=== PATIENT | male | born 1950 | race Caucasian/White ===

== ENCOUNTER 2018-06-20 16:11 | Emergency (ER) | payer OTHER ==
[~2018-06-20] VITALS: Ht 165.1 cm; Wt 70.3 kg
[2018-06-20] MEDS ORDERED: NACL 0.9% 1,000 ML IV ONE (16:16)
[2018-06-20 16:18] VITALS: BP_SYST 158
--- NOTE | 2018-06-20 16:22 | NUR ---
Patient to ER bed 3 to gown for evaluation. Side rails up. Report given to POLO RAMÍREZ.
--- NOTE | 2018-06-20 16:24 | NUR ---
Pt presents to ED c/o acute onset of epigastric abdominal pain and vomiting and diarrhea x 1 day. Pt also complains of mild chest pain and shortness of breath. Pt denies any fever, chills, dysuria, shortness of breath, headache, neck stiffness, rashes, or further complaints.
--- NOTE | 2018-06-20 16:25 | NUR ---
ER Dr. Fraser at bedside examining patient.
[2018-06-20] MEDS ORDERED: ONDANSETRON HCL 4 MG/2 ML VIAL IVP ONE (16:30)
--- NOTE | 2018-06-20 16:30 | NUR ---
# 20 gauge angiocath placed to RAC. Use of asceptic technique. Opsite placed over site. Blood return noted. Blood for lab drawn from site. Flushed with 10 cc of normal saline. No evidence of infiltration noted. Patient tolerated well.
[2018-06-20 16:45] LABS: CLARITY/URINE CLEAR (CLEAR); COLOR,URINE YELLOW (YELLOW); GLUCOSE,URINE NEGATIVE (NEGATIVE); KETONES,URINE 3+ (NEGATIVE); LEUKOCYTE ESTERASE ,URINE NEGATIVE (NEGATIVE); NITRITE, URINE NEGATIVE (NEGATIVE); PH,URINE 5.5 (5.0-8.0); PROTEIN URINE 1+ (NEGATIVE)
[2018-06-20 16:54] LABS: BILIRUBIN,URINE NEGATIVE (NEGATIVE); BLOOD, URINE TRACE (NEGATIVE)
[2018-06-20 16:55] LABS: BASOPHILS % (AUTO) 0.1 % (0.0-2.0); EOSINOPHILS % (AUTO) 0.1 % (0.0-4.0); HEMATOCRIT 47.5 % (36-54); HEMOGLOBIN 15.8 g/dL (14.0-18.0); LYMPHOCYTES # (AUTO) 0.6 K/uL (1.0-5.5); LYMPHOCYTES % (AUTO) 14.1 % (20.5-51.5); MEAN CORPUSCULAR HEMOGLOBIN 31 pg (27-31); MEAN CORPUSCULAR HGB CONC 33 % (32-36); MEAN CORPUSCULAR VOLUME 92 fL (79.0-98.0); MONOCYTES # (AUTO) 0.5 K/uL (0.0-1.0); MONOCYTES % (AUTO) 12.4 % (1.7-9.3); NEUTROPHILS # (AUTO) 3.3 K/uL (1.8-7.7); NEUTROPHILS % (AUTO) 73.3 % (40.0-70.0); PLATELET COUNT (AUTO) 199 K/uL (130-430); RED BLOOD CELL COUNT(AUTO) 5.15 MIL/uL (4.2-6.2); RED CELL DISTRIBUTION WIDTH 13.3 % (9.0-15.0); WHITE BLOOD COUNT (AUTO) 4.4 K/uL (4.8-10.8)
[2018-06-20 16:55] LABS: BACTERIA,URINE FEW /HPF (None Seen); MUCUS,URINE 2+ /LPF (None Seen); RBC,URINE 0-3 /HPF (0-3); WBC,URINE NONE SEEN /HPF (0-3)
[2018-06-20 16:57] LABS: CREATININE 0.79 mg/dL (0.55-1.30); POTASSIUM 4.1 mmol/L (3.5-5.1)
[2018-06-20 16:59] LABS: INR 1.1 (0.80-1.20)
[2018-06-20 17:01] LABS: ALBUMIN 3.5 g/dL (3.4-4.8); TOTAL BILIRUBIN 0.6 mg/dL (0.0-1.0)
--- NOTE | 2018-06-20 17:30 | NUR ---
Dr. Fraser at bedside speaking with pt.
[2018-06-20 18:00] VITALS: BP_SYST 158
--- NOTE | 2018-06-20 18:00 | NUR ---
Patient given written and verbal discharge instructions and verbalizes understanding. ER MD discussed with patient the results and treatment provided. Patient in stable condition. ID arm band removed. IV catheter removed intact and dressing applied, no active bleeding. Rx of Lomotil, Zofran, Tylenol given. Patient educated on pain management and to follow up with PMD. Pain Scale 2/10. Opportunity for questions provided and answered. Medication side effect fact sheet provided.
== END 2018-06-20 18:00 | disposition home or self-care (01) ==
LOC: SED 16:11
DX: K52.9 Noninfective gastroenteritis and colitis, unspecified (principal); R07.89 Other chest pain; R06.02 Shortness of breath; R03.0 Elevated blood-pressure reading, without diagnosis of hypertension
CPT/HCPCS: 36415; 71045; 80053; 81000; 82150; 82550; 83605; 83690; 84484; 85025; 85610; 85730; 87040; 93005; 96361; 96374; 99284; J2405; J7030

== ENCOUNTER 2020-06-03 13:56 | Emergency (ER) | payer OTHER, SELFPAY ==
--- NOTE | 2020-06-03 14:36 | NUR ---
Patient left without being seen.
== END 2020-06-03 14:36 | disposition left against medical advice (07) ==
LOC: SED 13:56
DX: Z53.21 Procedure and treatment not carried out due to patient leaving prior to being seen by health care provider (principal)

== ENCOUNTER 2021-02-27 09:49 | Emergency (ER) | payer OTHER, SELFPAY ==
[~2021-02-27] VITALS: Ht 165.1 cm; Wt 63.5 kg
[2021-02-27 09:56] VITALS: BP_SYST 158
[2021-02-27] MEDS ORDERED: DIPHENHYDRAMINE INJ 50 MG/ML VIAL ONE (10:26)
[2021-02-27] MEDS ORDERED: METOCLOPRAMIDE HCL 10 MG/2 ML VIAL ONE (10:27)
[2021-02-27] MEDS ORDERED: DIPHENHYDRAMINE INJ 50 MG/ML VIAL IVP ONE (10:30)
[2021-02-27] MEDS ORDERED: METOCLOPRAMIDE HCL 10 MG/2 ML VIAL IVP ONE (10:30)
[2021-02-27 10:47] LABS: BASOPHILS % (AUTO) 0.5 % (0.0-2.0); EOSINOPHILS % (AUTO) 0.5 % (0.0-4.0); HEMOGLOBIN 14.4 g/dL (14.0-18.0); LYMPHOCYTES % (AUTO) 33.1 % (20.5-51.5); MEAN CORPUSCULAR HEMOGLOBIN 33 pg (27-31); MEAN CORPUSCULAR HGB CONC 34 % (32-36); MEAN CORPUSCULAR VOLUME 98 fL (79.0-98.0); MONOCYTES # (AUTO) 0.4 K/uL (0.0-1.0); MONOCYTES % (AUTO) 6.7 % (1.7-9.3); NEUTROPHILS # (AUTO) 3.5 K/uL (1.8-7.7); NEUTROPHILS % (AUTO) 59.2 % (40.0-70.0); PLATELET COUNT (AUTO) 177 K/uL (130-430); RED CELL DISTRIBUTION WIDTH 14.2 % (9.0-15.0); WHITE BLOOD COUNT (AUTO) 5.9 K/uL (4.8-10.8)
[2021-02-27 10:58] LABS: PROTHROMBIN TIME 11.1 SECS (9.5-12.5)
[2021-02-27 11:04] LABS: ALANINE AMINOTRANSFERASE 80 U/L (12-78); ALBUMIN 3.3 g/dL (3.4-4.8); ALCOHOL, BLOOD 234 mg/dL (<10); ANION GAP 14 (5-15); ASPARTATE AMINOTRANSFERASE 108 U/L (10-37); C-REACTIVE PROTEIN QUANT 0.8 mg/dL (0-0.5); CALCIUM 8.6 mg/dL (8.4-11.0); CHLORIDE 101 mmol/L (98-107); CREATININE 0.65 mg/dL (0.55-1.30); GLUCOSE 98 mg/dL (70-99); POTASSIUM 3.3 mmol/L (3.5-5.1); SODIUM SERUM 138 mmol/L (136-145); TOTAL BILIRUBIN 0.7 mg/dL (0.0-1.0); UREA NITROGEN, BLOOD 14 mg/dL (8-21)
[2021-02-27 11:05] LABS: ACETAMINOPHEN < 1 ug/mL (1-30)
[2021-02-27] MEDS ORDERED: LORazepam 1 MG TABLET PO ONE (11:30)
[2021-02-27 11:35] VITALS: BP_SYST 158
[2021-02-27 11:51] LABS: BARBITURATE, URINE NEGATIVE (NEG <=200); BENZODIAZEPINE, URINE NEGATIVE (NEG <=150); CANNABINOID, URINE NEGATIVE (NEG <=50); COCAINE, URINE NEGATIVE (NEG <=150); METHAMPHETAMINES SCREEN,URINE NEGATIVE (NEG <=500); PHENCYCLIDINE SCREEN,URINE NEGATIVE (NEG <=25); URINE AMPHETAMINE NEGATIVE (NEG <=500); URINE METHADONE POSITIVE (NEG <=200)
[2021-02-27 11:52] LABS: OPIATE, URINE NEGATIVE (NEG <=100); UR TRICYCLIC ANTIDEPRESSANTS NEGATIVE (NEG <=300); URINE OXYCODONE SCREEN NEGATIVE (NEG <=100); URINE PROPOXYPHENE SCREEN NEGATIVE (NEG <=300)
== END 2021-02-27 11:32 | disposition home or self-care (01) ==
LOC: SED 09:49
DX: F10.10 Alcohol abuse, uncomplicated (principal); F32.9 Major depressive disorder, single episode, unspecified; Y90.7 Blood alcohol level of 200-239 mg/100 ml; Z79.899 Other long term (current) drug therapy
CPT/HCPCS: 36415; 80053; 80307; 82140; 82550; 85025; 85610; 85730; 86140; 99283; G0480; J2765; G0481; G0482; J1200

== ENCOUNTER 2021-03-23 03:03 | Inpatient (IN) | payer OTHER, SELFPAY ==
[~2021-03-23] VITALS: Ht 165.1 cm; Wt 71.2 kg
[2021-03-23 03:17] VITALS: BP_SYST 141
[2021-03-23] MEDS ORDERED: FOLIC ACID 5 MG/ML VIAL IV ONE ×2 (04:15→06:18)
[2021-03-23] MEDS ORDERED: THIAMINE HCL 100 MG in NS 50 ML IV ONE (04:15)
[2021-03-23] MEDS ORDERED: HALOPERIDOL LACTATE 5 MG/ML VIAL IM ONE (04:15)
[2021-03-23] MEDS ORDERED: OLANZapine IntraMuscular 10 MG VIAL (FOR I.M. INJECTION ONLY) IM ONE (04:15)
[2021-03-23] MEDS ORDERED: HALOPERIDOL LACTATE 5 MG/ML VIAL ONE (04:22)
[2021-03-23] MEDS ORDERED: ACETAMINOPHEN 325 MG TABLET PO ONE (05:45)
[2021-03-23] MEDS ORDERED: METOCLOPRAMIDE HCL 10 MG/2 ML VIAL IVP ONE (06:00)
[2021-03-23] MEDS ORDERED: KETOROLAC TROMETHAMINE 15 MG VIAL IVP ONE (06:00)
[2021-03-23] MEDS ORDERED: THIAMINE HCL 100 MG/ML VIAL ONE (06:08)
[2021-03-23 06:17] LABS: BASOPHILS # (AUTO) 0.1 K/uL (0.0-0.2); BASOPHILS % (AUTO) 1.3 % (0.0-2.0); EOSINOPHILS % (AUTO) 0.4 % (0.0-4.0); HEMATOCRIT 41.8 % (36-54); HEMOGLOBIN 14.4 g/dL (14.0-18.0); LYMPHOCYTES # (AUTO) 0.4 K/uL (1.0-5.5); LYMPHOCYTES % (AUTO) 5.3 % (20.5-51.5); MEAN CORPUSCULAR HEMOGLOBIN 34 pg (27-31); MEAN CORPUSCULAR HGB CONC 35 % (32-36); MEAN CORPUSCULAR VOLUME 100 fL (79.0-98.0); MONOCYTES # (AUTO) 0.4 K/uL (0.0-1.0); MONOCYTES % (AUTO) 5.3 % (1.7-9.3); NEUTROPHILS # (AUTO) 6.5 K/uL (1.8-7.7); NEUTROPHILS % (AUTO) 87.7 % (40.0-70.0); PLATELET COUNT (AUTO) 194 K/uL (130-430); RED CELL DISTRIBUTION WIDTH 14.8 % (9.0-15.0); WHITE BLOOD COUNT (AUTO) 7.5 K/uL (4.8-10.8)
[2021-03-23] MEDS ORDERED: ACETAMINOPHEN 325 MG TABLET ONE (06:19)
[2021-03-23 06:23] LABS: ANION GAP 26 (5-15); CALCIUM 9.3 mg/dL (8.4-11.0); CHLORIDE 99 mmol/L (98-107); CREATININE 0.87 mg/dL (0.55-1.30); GLUCOSE 82 mg/dL (70-99); POTASSIUM 3.2 mmol/L (3.5-5.1); SODIUM SERUM 140 mmol/L (136-145); UREA NITROGEN, BLOOD 14 mg/dL (8-21)
[2021-03-23 06:29] LABS: INR 1.1 (0.80-1.20); PROTHROMBIN TIME 11.3 SECS (9.5-12.5)
[2021-03-23] MEDS ORDERED: LORazepam 2 MG/ML VIAL ONE (06:35)
[2021-03-23 06:36] LABS: ALANINE AMINOTRANSFERASE 269 U/L (12-78); ALBUMIN 3.9 g/dL (3.4-4.8); ALCOHOL, BLOOD 52 mg/dL (<10); ASPARTATE AMINOTRANSFERASE 312 U/L (10-37); TOTAL BILIRUBIN 2.4 mg/dL (0.0-1.0)
[2021-03-23 06:37] LABS: ACETAMINOPHEN < 1 ug/mL (1-30)
[2021-03-23 06:38] LABS: CHOLESTEROL 221 mg/dL (<200); HDL CHOLESTEROL 65 mg/dL (>45); LDL CHOLESTEROL 139 mg/dL (<100); TRIGLYCERIDES 146 mg/dL (30-150)
[2021-03-23] MEDS ORDERED: LORazepam 2 MG/ML VIAL IVP ONE (06:45)
[2021-03-23] MEDS ORDERED: NACL 0.9% 1,000 ML IV ONE (06:45)
[2021-03-23 06:49] LABS: LIPASE 8882 U/L (73-393)
[2021-03-23 07:29] LABS: ACETONE, SERUM TRACE (NEGATIVE)
[2021-03-23] MEDS ORDERED: FOLIC ACID 1 MG, THIAMINE HCL 100 MG, MAGNESIUM SULFATE 1 GM, MVI 10 ML in NACL 0.9% 1,... IV ONE (07:30)
[2021-03-23] MEDS: LORazepam 2 MG/ML VIAL IVP PRN ×6 (07:59→22:46)
[2021-03-23] MEDS ORDERED: ASPI-1393 PO (08:23)
[2021-03-23 08:49] LABS: BILIRUBIN,URINE 2+ (NEGATIVE); BLOOD, URINE 3+ (NEGATIVE); COLOR,URINE YELLOW (YELLOW); GLUCOSE,URINE NEGATIVE (NEGATIVE); KETONES,URINE 3+ (NEGATIVE); LEUKOCYTE ESTERASE ,URINE NEGATIVE (NEGATIVE); NITRITE, URINE NEGATIVE (NEGATIVE); PROTEIN URINE 2+ (NEGATIVE)
[2021-03-23 08:56] LABS: CLARITY/URINE SLIGHTLY HAZY (CLEAR)
[2021-03-23 09:01] LABS: BARBITURATE, URINE NEGATIVE (NEG <=200)
[2021-03-23 09:02] LABS: BENZODIAZEPINE, URINE NEGATIVE (NEG <=150); CANNABINOID, URINE NEGATIVE (NEG <=50); COCAINE, URINE NEGATIVE (NEG <=150); METHAMPHETAMINES SCREEN,URINE NEGATIVE (NEG <=500); OPIATE, URINE NEGATIVE (NEG <=100); PHENCYCLIDINE SCREEN,URINE NEGATIVE (NEG <=25); UR TRICYCLIC ANTIDEPRESSANTS NEGATIVE (NEG <=300); URINE AMPHETAMINE NEGATIVE (NEG <=500); URINE METHADONE POSITIVE (NEG <=200); URINE OXYCODONE SCREEN NEGATIVE (NEG <=100); URINE PROPOXYPHENE SCREEN NEGATIVE (NEG <=300)
[2021-03-23] MEDS ORDERED: METH-797 PO (09:20)
[2021-03-23 09:41] LABS: BACTERIA,URINE FEW /HPF (None Seen); WBC,URINE 0-3 /HPF (0-3)
[2021-03-23 09:42] LABS: COARSE GRANULAR CASTS,URINE 0-10 /LPF (None Seen)
[2021-03-23 09:47] VITALS: BP_SYST 131
[2021-03-23 09:50] VITALS: BP_SYST 131
[2021-03-23] MEDS ORDERED: FOLIC ACID 1 MG, MVI 10 ML in NACL 0.9% 1,000 ML IV ONE (11:15)
[2021-03-23] MEDS ORDERED: THIAMINE HCL 100 MG, MAGNESIUM SULFATE 1 GM in NS 100 ML IV ONE (11:15)
[2021-03-23] MEDS ORDERED: POTASSIUM CHLORIDE 20 MEQ TAB.PRT.SR PO ONE (13:45)
[2021-03-23] MEDS: LR 1,000 ML IV SCH ×3 (14:49→22:47)
[2021-03-23] MEDS ORDERED: DIPHENHYDRAMINE INJ 50 MG/ML VIAL IVP PRN (16:00)
[2021-03-23] MEDS ORDERED: HALOPERIDOL LACTATE 5 MG/ML VIAL IM PRN (16:00)
[2021-03-23] MEDS: HALOPERIDOL 5 MG TABLET (HALDOL) PO SCH ×2 (17:47→20:51)
[2021-03-23] MEDS: DIPHENHYDRAMINE HCL 25 MG CAPSULE PO SCH ×2 (17:47→20:51)
[2021-03-24] MEDS: LORazepam 2 MG/ML VIAL IVP PRN ×7 (00:07→19:04)
[2021-03-24 04:00] VITALS: BP_SYST 138
[2021-03-24 06:35] LABS: BASOPHILS % (AUTO) 0.4 % (0.0-2.0); EOSINOPHILS # (AUTO) 0.1 K/uL (0.0-0.4); EOSINOPHILS % (AUTO) 1.3 % (0.0-4.0); HEMATOCRIT 35.5 % (36-54); HEMOGLOBIN 12.5 g/dL (14.0-18.0); LYMPHOCYTES # (AUTO) 0.8 K/uL (1.0-5.5); LYMPHOCYTES % (AUTO) 13.5 % (20.5-51.5); MEAN CORPUSCULAR HEMOGLOBIN 34 pg (27-31); MEAN CORPUSCULAR HGB CONC 35 % (32-36); MEAN CORPUSCULAR VOLUME 97 fL (79.0-98.0); MONOCYTES # (AUTO) 0.4 K/uL (0.0-1.0); MONOCYTES % (AUTO) 6.2 % (1.7-9.3); NEUTROPHILS # (AUTO) 4.9 K/uL (1.8-7.7); NEUTROPHILS % (AUTO) 78.6 % (40.0-70.0); PLATELET COUNT (AUTO) 127 K/uL (130-430); RED BLOOD CELL COUNT(AUTO) 3.65 MIL/uL (4.2-6.2); RED CELL DISTRIBUTION WIDTH 14.8 % (9.0-15.0); WHITE BLOOD COUNT (AUTO) 6.2 K/uL (4.8-10.8)
[2021-03-24 06:39] LABS: INR 1.2 (0.80-1.20); PROTHROMBIN TIME 12.2 SECS (9.5-12.5)
[2021-03-24 06:59] LABS: ALANINE AMINOTRANSFERASE 186 U/L (12-78); ALBUMIN 2.7 g/dL (3.4-4.8); ANION GAP 11 (5-15); ASPARTATE AMINOTRANSFERASE 178 U/L (10-37); CALCIUM 7.9 mg/dL (8.4-11.0); CHLORIDE 105 mmol/L (98-107); GLUCOSE 118 mg/dL (70-99); SODIUM SERUM 140 mmol/L (136-145); TOTAL BILIRUBIN 3.1 mg/dL (0.0-1.0); UREA NITROGEN, BLOOD 4 mg/dL (8-21)
[2021-03-24 08:00] VITALS: BP_SYST 147
[2021-03-24 08:33] LABS: LIPASE 4004 U/L (73-393)
[2021-03-24 08:34] LABS: POTASSIUM 2.5 mmol/L (3.5-5.1)
[2021-03-24] MEDS: DIPHENHYDRAMINE HCL 25 MG CAPSULE PO SCH ×4 (08:44→20:54)
[2021-03-24] MEDS: HALOPERIDOL 5 MG TABLET (HALDOL) PO SCH ×4 (08:44→20:54)
[2021-03-24] MEDS: THIAMINE HCL 100 MG TABLET PO SCH (08:45)
[2021-03-24] MEDS: NEPHROVITE, (FOLIC ACID/VITAMIN B COMP W-C 1 TAB) PO SCH (08:45)
[2021-03-24] MEDS ORDERED: POTASSIUM CHLORIDE 20 MEQ TAB.PRT.SR PO SCH (09:00)
[2021-03-24 11:48] VITALS: BP_SYST 150
[2021-03-24] MEDS: LR 1,000 ML IV SCH ×2 (12:09→15:45)
[2021-03-24] MEDS ORDERED: POTASSIUM CHLORIDE 20 MEQ/PKT PACKET PO ONE (12:30)
[2021-03-24] MEDS ORDERED: MAGNESIUM SULFATE/D5W 100 ML IV ONE (15:30)
[2021-03-24] MEDS ORDERED: POTASSIUM CHLORIDE 20 MEQ TAB.PRT.SR PO ONE (15:45)
[2021-03-24] MEDS ORDERED: METHADONE HCL 10 MG TABLET PO ONE (15:45)
[2021-03-24 16:26] VITALS: BP_SYST 149
[2021-03-24 20:00] VITALS: BP_SYST 127
[2021-03-24] MEDS: POTASSIUM CHLORIDE 20 MEQ TAB.PRT.SR PO SCH (20:55)
[2021-03-25 00:45] VITALS: BP_SYST 130
[2021-03-25] MEDS: LR 1,000 ML IV SCH ×2 (01:36→12:50)
[2021-03-25 07:02] LABS: BASOPHILS % (AUTO) 0.4 % (0.0-2.0); EOSINOPHILS # (AUTO) 0.2 K/uL (0.0-0.4); EOSINOPHILS % (AUTO) 2.4 % (0.0-4.0); HEMOGLOBIN 13.3 g/dL (14.0-18.0); LYMPHOCYTES # (AUTO) 1.1 K/uL (1.0-5.5); LYMPHOCYTES % (AUTO) 15.4 % (20.5-51.5); MEAN CORPUSCULAR HEMOGLOBIN 34 pg (27-31); MEAN CORPUSCULAR HGB CONC 35 % (32-36); MEAN CORPUSCULAR VOLUME 98 fL (79.0-98.0); MONOCYTES # (AUTO) 0.4 K/uL (0.0-1.0); MONOCYTES % (AUTO) 5.5 % (1.7-9.3); NEUTROPHILS # (AUTO) 5.3 K/uL (1.8-7.7); NEUTROPHILS % (AUTO) 76.3 % (40.0-70.0); PLATELET COUNT (AUTO) 118 K/uL (130-430); RED BLOOD CELL COUNT(AUTO) 3.88 MIL/uL (4.2-6.2); RED CELL DISTRIBUTION WIDTH 14.5 % (9.0-15.0)
[2021-03-25 07:50] LABS: ALANINE AMINOTRANSFERASE 189 U/L (12-78); ALBUMIN 2.7 g/dL (3.4-4.8); ANION GAP 9 (5-15); ASPARTATE AMINOTRANSFERASE 162 U/L (10-37); CALCIUM 8.6 mg/dL (8.4-11.0); CHLORIDE 106 mmol/L (98-107); CREATININE 0.48 mg/dL (0.55-1.30); GLUCOSE 111 mg/dL (70-99); POTASSIUM 3.5 mmol/L (3.5-5.1); SODIUM SERUM 142 mmol/L (136-145); UREA NITROGEN, BLOOD 3 mg/dL (8-21)
[2021-03-25 08:36] LABS: LIPASE 1392 U/L (73-393)
[2021-03-25 08:59] VITALS: BP_SYST 144
[2021-03-25] MEDS: METHADONE HCL 10 MG TABLET PO SCH (09:13)
[2021-03-25] MEDS: HALOPERIDOL 5 MG TABLET (HALDOL) PO SCH ×3 (09:13→20:31)
[2021-03-25] MEDS: THIAMINE HCL 100 MG TABLET PO SCH (09:14)
[2021-03-25] MEDS: NEPHROVITE, (FOLIC ACID/VITAMIN B COMP W-C 1 TAB) PO SCH (09:14)
[2021-03-25] MEDS: POTASSIUM CHLORIDE 20 MEQ TAB.PRT.SR PO SCH ×3 (09:14→20:32)
[2021-03-25] MEDS: DIPHENHYDRAMINE HCL 25 MG CAPSULE PO SCH ×4 (09:14→20:31)
[2021-03-25 16:00] VITALS: BP_SYST 147
[2021-03-25] MEDS ORDERED: MILK OF MAGNESIA 30 ML UDC PO PRN (17:15)
[2021-03-25] MEDS: MULTIVITS,CA,MINERALS/IRON/FA 1 TABLET PO ONE ×2 (18:41→18:42)
[2021-03-25 20:00] VITALS: BP_SYST 140
[2021-03-25] MEDS: MAGNESIUM OXIDE 400 MG TABLET PO SCH (20:31)
[2021-03-26] VITALS: BP_SYST 134
[2021-03-26] MEDS: LR 1,000 ML IV SCH ×2 (03:12→16:11)
[2021-03-26 05:08] LABS: HEPATITIS A AB, IgM Negative (Negative); HEPATITIS B CORE AB, IgM Negative (Negative); HEPATITIS B SURFACE AG Negative (Negative)
[2021-03-26] MEDS: LORazepam 2 MG/ML VIAL IVP PRN ×2 (05:26→18:21)
[2021-03-26 06:22] LABS: BASOPHILS % (AUTO) 0.7 % (0.0-2.0); EOSINOPHILS # (AUTO) 0.2 K/uL (0.0-0.4); EOSINOPHILS % (AUTO) 2.6 % (0.0-4.0); HEMATOCRIT 37.3 % (36-54); HEMOGLOBIN 12.6 g/dL (14.0-18.0); LYMPHOCYTES # (AUTO) 1.4 K/uL (1.0-5.5); LYMPHOCYTES % (AUTO) 19.8 % (20.5-51.5); MEAN CORPUSCULAR HEMOGLOBIN 34 pg (27-31); MEAN CORPUSCULAR HGB CONC 34 % (32-36); MEAN CORPUSCULAR VOLUME 100 fL (79.0-98.0); MONOCYTES # (AUTO) 0.5 K/uL (0.0-1.0); MONOCYTES % (AUTO) 6.8 % (1.7-9.3); NEUTROPHILS # (AUTO) 5.1 K/uL (1.8-7.7); NEUTROPHILS % (AUTO) 70.1 % (40.0-70.0); PLATELET COUNT (AUTO) 114 K/uL (130-430); RED BLOOD CELL COUNT(AUTO) 3.73 MIL/uL (4.2-6.2); RED CELL DISTRIBUTION WIDTH 14.9 % (9.0-15.0); WHITE BLOOD COUNT (AUTO) 7.3 K/uL (4.8-10.8)
[2021-03-26 07:38] VITALS: BP_SYST 123
[2021-03-26] MEDS: NEPHROVITE, (FOLIC ACID/VITAMIN B COMP W-C 1 TAB) PO SCH (08:53)
[2021-03-26] MEDS: POTASSIUM CHLORIDE 20 MEQ TAB.PRT.SR PO SCH ×2 (08:54→21:39)
[2021-03-26] MEDS: METHADONE HCL 10 MG TABLET PO SCH (08:54)
[2021-03-26] MEDS: MULTIVITS,CA,MINERALS/IRON/FA 1 TABLET PO SCH (08:54)
[2021-03-26] MEDS: MAGNESIUM OXIDE 400 MG TABLET PO SCH ×2 (08:54→21:39)
[2021-03-26] MEDS: DIPHENHYDRAMINE HCL 25 MG CAPSULE PO SCH ×4 (08:55→21:40)
[2021-03-26] MEDS: THIAMINE HCL 100 MG TABLET PO SCH (08:55)
[2021-03-26] MEDS: HALOPERIDOL 5 MG TABLET (HALDOL) PO SCH ×3 (08:55→21:40)
[2021-03-26 10:23] LABS: CORRECTED WHITE BLOOD COUNT 7.3 K/uL (4.5-11.0)
[2021-03-26 10:26] LABS: POTASSIUM 4.4 mmol/L (3.5-5.1); SODIUM SERUM 136 mmol/L (136-145)
[2021-03-26 10:27] LABS: ANION GAP 7 (5-15); CALCIUM 8.4 mg/dL (8.4-11.0); CHLORIDE 102 mmol/L (98-107); CREATININE 0.66 mg/dL (0.55-1.30); GLUCOSE 130 mg/dL (70-99); UREA NITROGEN, BLOOD 4 mg/dL (8-21)
[2021-03-26 10:28] LABS: ALANINE AMINOTRANSFERASE 189 U/L (12-78); ALBUMIN 2.3 g/dL (3.4-4.8); ASPARTATE AMINOTRANSFERASE 158 U/L (10-37); TOTAL BILIRUBIN 1.4 mg/dL (0.0-1.0)
[2021-03-26 10:29] LABS: CHOLESTEROL 133 mg/dL (<200); HDL CHOLESTEROL 28 mg/dL (>45); LDL CHOLESTEROL 86 mg/dL (<100); TRIGLYCERIDES 80 mg/dL (30-150)
[2021-03-26 10:30] LABS: LIPASE 905 U/L (73-393)
[2021-03-26 12:00] VITALS: BP_SYST 107
[2021-03-26 16:15] VITALS: BP_SYST 110
[2021-03-26] MEDS ORDERED: BENZONATATE 100 MG CAPSULE (TESSALON) PO PRN (16:15)
[2021-03-26 20:00] VITALS: BP_SYST 102
[2021-03-27] VITALS (7 sets, daily range): BP systolic 83–119
[2021-03-27] MEDS: LR 1,000 ML IV SCH (06:29)
[2021-03-27 07:03] LABS: BASOPHILS % (AUTO) 0.5 % (0.0-2.0); EOSINOPHILS # (AUTO) 0.2 K/uL (0.0-0.4); EOSINOPHILS % (AUTO) 2.6 % (0.0-4.0); HEMATOCRIT 40.9 % (36-54); HEMOGLOBIN 13.7 g/dL (14.0-18.0); LYMPHOCYTES # (AUTO) 1.6 K/uL (1.0-5.5); LYMPHOCYTES % (AUTO) 22.2 % (20.5-51.5); MEAN CORPUSCULAR HEMOGLOBIN 34 pg (27-31); MEAN CORPUSCULAR HGB CONC 34 % (32-36); MEAN CORPUSCULAR VOLUME 101 fL (79.0-98.0); MONOCYTES # (AUTO) 0.6 K/uL (0.0-1.0); MONOCYTES % (AUTO) 8.3 % (1.7-9.3); NEUTROPHILS # (AUTO) 4.7 K/uL (1.8-7.7); NEUTROPHILS % (AUTO) 66.4 % (40.0-70.0); PLATELET COUNT (AUTO) 113 K/uL (130-430); RED BLOOD CELL COUNT(AUTO) 4.04 MIL/uL (4.2-6.2); RED CELL DISTRIBUTION WIDTH 14.9 % (9.0-15.0)
[2021-03-27 07:51] LABS: ALANINE AMINOTRANSFERASE 186 U/L (12-78); ALBUMIN 2.6 g/dL (3.4-4.8); ANION GAP 5 (5-15); ASPARTATE AMINOTRANSFERASE 125 U/L (10-37); CALCIUM 9.4 mg/dL (8.4-11.0); CHLORIDE 100 mmol/L (98-107); CREATININE 0.78 mg/dL (0.55-1.30); GLUCOSE 123 mg/dL (70-99); LIPASE 715 U/L (73-393); POTASSIUM 5.1 mmol/L (3.5-5.1); SODIUM SERUM 136 mmol/L (136-145); UREA NITROGEN, BLOOD 6 mg/dL (8-21)
[2021-03-27] MEDS: METHADONE HCL 10 MG TABLET PO SCH (08:05)
[2021-03-27] MEDS: POTASSIUM CHLORIDE 20 MEQ TAB.PRT.SR PO SCH (08:05)
[2021-03-27] MEDS: MULTIVITS,CA,MINERALS/IRON/FA 1 TABLET PO SCH (08:05)
[2021-03-27] MEDS: HALOPERIDOL 5 MG TABLET (HALDOL) PO SCH ×3 (08:06→20:22)
[2021-03-27] MEDS: THIAMINE HCL 100 MG TABLET PO SCH (08:06)
[2021-03-27] MEDS: MAGNESIUM OXIDE 400 MG TABLET PO SCH ×2 (08:06→20:22)
[2021-03-27] MEDS: NEPHROVITE, (FOLIC ACID/VITAMIN B COMP W-C 1 TAB) PO SCH (08:06)
[2021-03-27] MEDS: DIPHENHYDRAMINE HCL 25 MG CAPSULE PO SCH ×4 (08:06→20:22)
[2021-03-27] MEDS: LORazepam 2 MG/ML VIAL IVP PRN ×2 (11:51→16:56)
[2021-03-28] MEDS: LORazepam 2 MG/ML VIAL IVP PRN
== END 2021-03-28 00:20 | DRG 439 ==
LOC: SED 03:03 → STU 07:19
PROVIDERS: ADMIT Internal Medicine; ATTEND Internal Medicine
DX: K85.20 Alcohol induced acute pancreatitis without necrosis or infection (principal); F11.20 Opioid dependence, uncomplicated; R45.851 Suicidal ideations; K70.10 Alcoholic hepatitis without ascites; E87.6 Hypokalemia; F32.A Depression, unspecified; K74.60 Unspecified cirrhosis of liver; Y90.9 Presence of alcohol in blood, level not specified; F10.129 Alcohol abuse with intoxication, unspecified; D64.9 Anemia, unspecified; D69.6 Thrombocytopenia, unspecified; Z20.822 Contact with and (suspected) exposure to COVID-19; Z79.82 Long term (current) use of aspirin; Z79.899 Other long term (current) drug therapy; Z91.51 Personal history of suicidal behavior
CPT/HCPCS: 36415; 70450-TC; 71045; 76376; 76700-TC; 80053; 80061; 80074; 80307; 81000; 82009; 82140; 82550; 83036; 83690; 83735; 85025; 85610-TC; 85730-TC; 87081; 93005; 96361; 96365; 96372; 96375; 99285; G0378; G0480; G0481; G0482; J1630; J1885; J2060; J2765; J3411; J3475; J3490; J7030; Q0163; Q9967

== ENCOUNTER 2023-04-21 12:13 | Emergency (ER) | payer OTHER ==
[~2023-04-21] VITALS: Ht 165.1 cm; Wt 104.3 kg
[~2023-04-21 12:13] MED LIST: ASPI-1393 PO; METH-797 PO
[2023-04-21 12:21] VITALS: BP_SYST 138; PULSE 94; RESP 20; TEMP 98.1; O2SAT 96
[2023-04-21 13:00] LABS: BASOPHILS # (AUTO) 0.1 K/uL (0.0-0.2); BASOPHILS % (AUTO) 0.7 % (0.0-2.0); EOSINOPHILS % (AUTO) 0.5 % (0.0-4.0); HEMATOCRIT 40.7 % (36-54); HEMOGLOBIN 13.7 g/dL (14.0-18.0); LYMPHOCYTES # (AUTO) 1.3 K/uL (1.0-5.5); LYMPHOCYTES % (AUTO) 15.7 % (20.5-51.5); MEAN CORPUSCULAR HEMOGLOBIN 35 pg (27-31); MEAN CORPUSCULAR HGB CONC 34 % (32-36); MEAN CORPUSCULAR VOLUME 103 fL (79.0-98.0); MONOCYTES # (AUTO) 0.5 K/uL (0.0-1.0); MONOCYTES % (AUTO) 6.2 % (1.7-9.3); NEUTROPHILS # (AUTO) 6.2 K/uL (1.8-7.7); NEUTROPHILS % (AUTO) 76.9 % (40.0-70.0); PLATELET COUNT (AUTO) 257 K/uL (130-430); RED BLOOD CELL COUNT(AUTO) 3.95 MIL/uL (4.2-6.2); RED CELL DISTRIBUTION WIDTH 13.8 % (9.0-15.0); WHITE BLOOD COUNT (AUTO) 8.1 K/uL (4.8-10.8)
[2023-04-21 13:14] LABS: ANION GAP 9 (5-15); CALCIUM 9.2 mg/dL (8.4-11.0); CARBON DIOXIDE 30 mmol/L (23-29); CHLORIDE 98 mmol/L (98-107); CREATININE 1.23 mg/dL (0.55-1.30); GLUCOSE 132 mg/dL (74-106); POTASSIUM 4.5 mmol/L (3.5-5.1); SODIUM SERUM 137 mmol/L (136-145); UREA NITROGEN, BLOOD 14 mg/dL (8-21)
[2023-04-21 13:21] LABS: ALANINE AMINOTRANSFERASE 75 U/L (12-78); ALBUMIN 3.1 g/dL (3.4-4.8); ASPARTATE AMINOTRANSFERASE 156 U/L (10-37); TOTAL PROTEIN, SERUM 8.1 g/dL (6.4-8.3)
[2023-04-21] MEDS ORDERED: ASPIRIN 81 MG TAB.CHEW PO ONE (13:45)
[2023-04-21] MEDS ORDERED: ASPIRIN 81 MG TAB.CHEW ONE (13:46)
[2023-04-21] MEDS ORDERED: ASA81 PO (13:48)
== END 2023-04-21 13:40 | disposition home or self-care (01) ==
LOC: SED 12:13
DX: R07.9 Chest pain, unspecified (principal); Z79.899 Other long term (current) drug therapy
CPT/HCPCS: 36415; 71045; 80053; 83880; 84484; 85025; 93005; 99285